=== PATIENT | female | born 1955 | race Caucasian/White ===

== ENCOUNTER → 2016-10-24 | Outpatient (CLI) | payer OTHER ==
[~2016-10-24] MED LIST: PAXIL PO; PAXIL40 MG PO; PROTONIX PO; ZOCOR PO; ZOCOR20 MG PO
--- NOTE | ~2016-10-24 | MY11 ---
[facility] A Service of [facility] RADIOLOGY TEXT RESULTS PATIENT: LEMUEL CUNHA LOCATION: [facility] : 53 UNIT #: [id number] AGE: [address]: Nona Garcia MD SEX: F ORDER DR: [id number] [facility] [address] [place], [place] [address] [id number] O MR#: [id number] Acc #: [id number] NAME: LEMUEL CUNHA. : 1955 SEX: F STUDY DATE/TIME: 10/24/2016 13:21 UNIT: [facility] ROOM: STUDY DESCRIPTION: MY Mammogram Screening Dig Yon Attending Physician: Nona Garcia M.D. Referring Physician: Nona Garcia M.D. Ordering Physician: Nona Garcia M.D. Primary Care Physician: Primary Care Physician No MEDICAL IMAGING REPORT This report is preliminary unless electronic signature is present EXAM Digital screening mammogram, 10/24/2016 HISTORY 61-year-old woman no risk elevation. Annual screening. COMPARISON Mammograms date to 06/30/2006 with most recent 10/03/2014. FINDINGS Digital imaging of each breast was completed utilizing a two-view examination of each breast in craniocaudal and mediolateral-oblique projections. Review and interpretation of digital mammograms include a second review in conjunction with FDA-approved CAD device. There is a normal parenchymal presentation bilaterally consistent with the patient's age. There are no breast masses imaged and no parenchymal asymmetry is visualized. There are no suspicious microcalcifications and I see no focal architectural disturbance. IMPRESSION Negative screening digital mammogram. One-year followup recommended. Patients over the age of 40 are entered into a reminder system with target due date for the next mammogram. A result letter will also be sent to the patient. BIRADS: 1 Negative ADDENDUM Breast parenchyma is fatty replaced. Dictated by... Lenard Tellez M.D. [facility] A Service of [facility] RADIOLOGY TEXT RESULTS PATIENT: LEMUEL CUNHA LOCATION: [facility] : 53 UNIT #: [id number] AGE: [address]: Nona Garcia MD SEX: F ORDER DR: THIS IS AN ELECTRONICALLY VERIFIED REPORT Lenard Tellez M.D. at 10/24/2016 3:57 PM Miya TD: 10/24/2016 15:06 JOB #: [id number] MEDICAL IMAGING REPORT Page 1 of 1 COPY
== END | disposition home or self-care (01) ==
LOC: CWCC 12:52
DX: Z12.31 Encounter for screening mammogram for malignant neoplasm of breast (principal); R92.8 Other abnormal and inconclusive findings on diagnostic imaging of breast
CPT/HCPCS: G0202